=== PATIENT | male | born 2000 | race Two or more races ===

== ENCOUNTER 2024-01-28 11:24 | Emergency (ER) | payer OTHER ==
[~2024-01-28] VITALS: Ht 177.8 cm; Wt 89.8 kg
[2024-01-28 12:47] VITALS: BP 130/81; PULSE 65; RESP 16; TEMP 97.8; O2SAT 98
[2024-01-28] MEDS ORDERED: AMOX875T3 PO (13:08)
[2024-01-28] MEDS ORDERED: MONT10TA23 PO (13:08)
== END 2024-01-28 13:14 | disposition home or self-care (01) ==
LOC: ER 11:24
DX: H66.93 Otitis media, unspecified, bilateral (principal)